=== PATIENT | female | born 1995 | race African-American/Black ===

== ENCOUNTER 2016-12-20 20:48 | Emergency (ER) | payer SELFPAY ==
[2016-12-20 20:55] VITALS: BP 116/66; BMI 17.6
--- NOTE | 2016-12-20 22:55 | DR.GENAD ---
HPI - PCP Primary Care Physician: Shai - HPI Comment HPI Comment: AREA SWOLLEN AND TENDER. NO DRAINAGE. HAVE HAD PREVIOUS ABSCESS IN THE SAME AREA THAT WAS DRAINED. - Complaint/Symptoms Chief Complaint Doctors Comments: ABSCESS RIGHT UPPER INNER THIGH/GROIN TIMES 3 DAYS. Chief Complaint:: "I have had risings in the past. The actually lanced them here in the ER a while back. I have two on the right side of my leg close to my groin area now. They came up about 3 days ago and seem to be getting bigger." - Nurses notes reviewed Nurses Notes Review: Yes - Source History Provided: Patient - Mode of Arrival Mode of Arrival: Ambulatory - Timing Onset of Chief Complaint: 12/17/16 Came on: Suddenly - Duration Duration: Constant Duration: Days - Severity Severity: Moderate PMH - PMH Past Medical History: No Past Surgical History: No Surgical History: Hysterectomy - Family History History of Family Medical Conditions: Yes Family Medical History: Hypertension - Social History Does patient currently use any type of tobacco product: Yes Have you used tobacco products in the last 12 months: Yes Type of Tobacco Use: Cigars Does any household member use tobacco: Yes Alcohol Use: None Do you use any recreational Drugs:: No Lives With: Family Lives Where: Home - infectious screening In the last 2 months have you had wt loss of >10#?: NO Have you had fever, night sweats or hemotysis?: No Have you traveled outside the country in the last 6 months?: No Isolation: Standard ROS - Review of Systems Constitutional: No Symptoms Reported. negative: Chills, Fever Eyes: No Symptoms Reported ENTM: No Symptoms Reported Respiratoy: No Symptoms Reported Cardiovascular: No Symptoms Reported Gastrointestinal/Abdominal: No Symptoms Reported Genitourinary: Other (RIGHT GROIN ANDUPPER INNER THIGH ABSCESS THAT IS FLUCTUANT SIZE 10 BY 5 CM.) Neurological: No Symptoms Reported Musculoskeletal: Right (GROIN ABSCESS) Integumentary: Other (ABSCESS RIGHT GROIN AND UPPER THIGH/INNER.) Hematologic/Lymphatic: No Symptoms Reported Endocrine: No Symptoms Reported All Other Systems: Reviewed and Negative PE - Vital Signs Vitals: Temperature 98.2 F Pulse Rate 75 Respiratory Rate 18 Blood Pressure 116/66 O2 Sat by Pulse Oximetry 100 - General Limitations: No Limitations General Appearance: Alert - Head Head Exam: Normal Inspection - Eyes Eye exam: Normal Appearance - ENT ENT Exam: Normal External Ear Exam External Ear Exam: Normal External Inspection TM/Canal Exam: Bilateral Normal Nose Exam: Normal Nose Exam Mouth Exam: Normal Inspection Throat Exam: Normal Inspection - Neck Neck Exam: Trachea Midline - Chest Chest Inspection: Symmetric Chest Wall Rise - Respiratory Respiratory Exam: Normal Lung Sounds Bilat Respiratory Exam: Bilateral Clear to Auscultation - Cardiovascular Cardiovascular Exam: Regular Rate, Normal Rhythm, Normal Heart Sounds - Abdominal Exam Abdominal Exam: Normal Bowel Sounds, Soft. negative: Tenderness - Extremities Extremities Exam: Other (RIGHT GROIN ABSCESS) - Back Back Exam: Normal Inspection - Neurologic Neurological Exam: Alert, Oriented X3 - Psychiatric Psychiatric Exam: Anxious - Skin Skin Exam: Erythema, Other (RT UPPER INNER THIGH AND GROIN ABSCESS.) MDM - Differential Diagnosis Differential Diagnosis: ABSCESS, CELLULITIS Course - Treatment Treatment: SEE ORDERS - Education/Counseling Education/Counseling: Patient, Education Educated On: Treatment, Diagnosis, Needs for Follow Up ROR - Labs Reviewed Laboratory: 12/21/16 00:18 Leg - Right Gram Stain - Final - XRAY XRAY Interpreted by: Radiologist Procedures - Incision and Drainage Blade Size: 11 I & D Procedure: betadine prep, sterile dressing applied, gauze wick placed (1/ 2 INCH GAUZE PACKING IN ED.) Progress: ASCESS CLEAN AND INFILTRATE WITH 1% LIDOCAINE. I&D DONE. 15CC PUS DRAIN. PATIENT WANT SQUEEZING STOP. THERE IS PUS LEFT IN ABSCESS. 1/2 INCH IODINE GAUZE APPLIED. - Diagnosis Discharge Problem: Abscess of right thigh, Abscess of right groin Cellulitis Qualifiers: Site of cellulitis: extremity Site of cellulitis of extremity: lower extremity Laterality: right Qualified Code(s): L03.115 - Cellulitis of right lower limb - Discharge Plan Disposition: 01 HOME, SELF-CARE Condition: Stable Prescriptions: Acetaminophen with Codeine [Tylenol/Codeine #3 300-30 mg] 1 tab PO Q4-6H PRN # 15 tab PRN Reason: Pain Ibuprofen [MOTRIN TAB 600 MG *] 600 mg PO TID PRN #20 tab PRN Reason: Pain/Inflammation Sulfamethoxazole-Trimethoprim [BACTRIM DS TAB 800/160 MG *] 1 tab PO BID #20 tab - Follow ups/Referrals Follow ups/Referrals: LORENA STEWART [Primary Care Provider] - 2 days - Instructions Instructions: Cellulitis, Adult, [id number], Abscess, [id number] Additional Instructions: RETURN TO ED IF WORSE. REFER TO SURGEON IN AM FOR REEVALUATION.
[2016-12-20] MEDS ORDERED: BACTRIM DS TAB PO ONE ×2 (23:31→23:34)
[2016-12-20] MEDS ORDERED: TYLENOL #3 TAB (W/CODEINE) PO ONE ×2 (23:32→23:34)
[2016-12-20] MEDS ORDERED: MOTRIN TAB 600 MG PO ONE ×2 (23:32→23:34)
== END 2016-12-21 00:20 | disposition home or self-care (01) ==
LOC: ER 21:00
PROC: 0H9HX0Z Drainage of Right Upper Leg Skin with Drainage Device, External Approach (ICD-10-PCS; principal; 2016-12-20)
DX: L02.415 Cutaneous abscess of right lower limb (principal); L02.214 Cutaneous abscess of groin; L03.115 Cellulitis of right lower limb; B95.7 Other staphylococcus as the cause of diseases classified elsewhere
CPT/HCPCS: 10060; 87070; 87075; 87077; 87186; 87205; 99282

== ENCOUNTER 2017-03-29 15:02 | Emergency (ER) | payer SELFPAY ==
[2017-03-29 15:12] VITALS: BP 118/69; BMI 19.3
[2017-03-29] MEDS ORDERED: PROVENTIL NEB TX 0.083% 2.5MG/ 3ML NEB ONE (18:25)
--- NOTE | 2017-03-29 18:27 | DR.GENAD ---
HPI - PCP Primary Care Physician: breanna - HPI Comment HPI Comment: She presents with SOB, onset early this afternoon. It is not related to activity. There was no chest pain. She talked about a nodule the left side of her chest. There was no chest pain or diaphoresis. - Complaint/Symptoms Chief Complaint:: felt hard nodule to her left side of chest next to sternum. tender to touch. feels bony and has similiar one on other side of sternum. pt states she then became short of breath. has had a cold - Nurses notes reviewed Nurses Notes Review: Yes - Source History Provided: Patient - Mode of Arrival Mode of Arrival: Ambulatory - Timing Onset of Chief Complaint: 03/29/17 PMH - PMH Past Medical History: No Past Surgical History: Yes Surgical History: Ortho Surgery - Family History History of Family Medical Conditions: No Family Medical History: Hypertension - Social History Type of Tobacco Use: Cigars Alcohol Use: None Do you use any recreational Drugs:: No Lives With: Family Lives Where: Home - infectious screening In the last 2 months have you had wt loss of >10#?: NO Have you had fever, night sweats or hemotysis?: No Have you traveled outside the country in the last 6 months?: No Isolation: Standard ROS - Review of Systems Constitutional: No Symptoms Reported Eyes: No Symptoms Reported ENTM: No Symptoms Reported Respiratoy: Short of Breath Cardiovascular: No Symptoms Reported Gastrointestinal/Abdominal: No Symptoms Reported Genitourinary: No Symptoms Reported Neurological: No Symptoms Reported Musculoskeletal: No Symptoms Reported Integumentary: No Symptoms Reported Hematologic/Lymphatic: No Symptoms Reported Endocrine: No Symptoms Reported Psychiatric: No Symptoms Reported All Other Systems: Reviewed and Negative PE - Vital Signs Vitals: Temperature 98.6 F Pulse Rate 86 Respiratory Rate 19 Blood Pressure 118/69 O2 Sat by Pulse Oximetry 97 - General Limitations: No Limitations General Appearance: Alert, In No Apparent Distress - Head Head Exam: Normal Inspection - Eyes Eye exam: Normal Appearance - ENT ENT Exam: Normal Exam Nose Exam: Normal Nose Exam Mouth Exam: Normal Inspection Throat Exam: Normal Inspection - Neck Neck Exam: Normal Inspection - Chest Chest Inspection: Normal Inspection - Respiratory Respiratory Exam: Normal Lung Sounds Bilat - Cardiovascular Cardiovascular Exam: Regular Rate, Normal Rhythm - Abdominal Exam Abdominal Exam: Normal Inspection, Normal Bowel Sounds, Soft - Extremities Extremities Exam: Normal Inspection - Back Back Exam: Normal Inspection - Neurologic Neurological Exam: Alert, Oriented X3, CN II-XII Intact - Psychiatric Psychiatric Exam: Normal Affect, Normal Mood - Skin Skin Exam: Warm, Dry, Intact, Normal Color ROR - XRAY XRAY Interpreted by: Radiologist (NAD) - EKG Rate: 103 [place]: Normal Rhythm: NSR Block: None Hypertrophy: None ST: Normal - Diagnosis Discharge Problem: Dyspnea, URI (upper respiratory infection) - Discharge Plan Disposition: 01 HOME, SELF-CARE Condition: Stable - Follow ups/Referrals Follow ups/Referrals: NFD,None [Primary Care Provider] - 3 days - Instructions
[2017-03-29] MEDS ORDERED: PROVENTIL NEB TX 0.083% 2.5MG/ 3ML ONE (19:08)
--- NOTE | 2017-03-29 19:41 | RAD ---
CHEST RADIOGRAPHS PA AND LATERAL VIEWS CLINICAL HISTORY: 22-year-old female with shortness of breath. COMPARISON: None. FINDINGS: The cardiopericardial silhouette is normal. There is no focal consolidation, pleural effus ion or pneumothorax. The lungs are well inflated. Pulmonary vascularity is normal. Imaged osseous str uctures are intact. Soft tissues are unremarkable. IMPRESSION: No acute cardiopulmonary process. Reported By:
[2017-03-29] MEDS ORDERED: ROBITUSSIN DM ONE (20:01)
[2017-03-29] MEDS ORDERED: ROBITUSSIN DM PO ONE (20:02)
== END 2017-03-29 20:15 | disposition home or self-care (01) ==
LOC: ER 15:18
DX: J06.9 Acute upper respiratory infection, unspecified (principal); R06.00 Dyspnea, unspecified
CPT/HCPCS: 71020; 93005; 93010; 94640; 99282; J7613